=== PATIENT | female | born 1995 | race Caucasian/White ===

== ENCOUNTER 2018-11-04 07:50 | Emergency (ER) | payer MEDICAID, OTHER ==
[2018-11-04 08:17] VITALS: BP 123/64
--- NOTE | 2018-11-04 08:57 | UC ---
Hip/Pelvis Pain - HPI Summary HPI Summary: 23 year old female s/p delivery 5 months ago with pelvic pain, right sided, right hip pain after delivery, was seen at post- check 6 weeks and rec'd to have US< patient did not complete as pain was feeling better. Presents now - states pain return over past 1 week. No numbness, weakness, no decrease in strength. feels like contant "pulling" sensation in her groin and notes if sits longer than 15 minutes with legs greater than 90 degrees hip "locks up", can be "unlocked" with movement, but achy afterwards. no vaginal prolapse, no incontenece bowel/ bladder. + sex active, no protection- having period now x 1 week. - History Of Current Complaint Chief Complaint: UCLowerExtremity Stated Complaint: RIGHT HIP PAIN Time Seen by Provider: 11/04/18 08:34 Hx Obtained From: Patient Hx Last Menstrual Period: 11/01/18 ?: No - on menses currently Onset/Duration: Sudden Onset, Lasting Weeks, Still Present Pain Intensity: 7 Pain Scale Used: 0-10 Numeric Location: Discrete At: - right hip/ groin Character Of Pain: Dull, Aching Aggravating Factor(s): Movement Alleviating Factor(s): Position Associated Signs And Symptoms: Positive: Negative - Allergies/Home Medications Allergies/Adverse Reactions: Allergies Allergy/AdvReac Type Severity Reaction Status Date / Time bacitracin Allergy Rash Verified 11/04/18 08:10 Home Medications: Home Medications Ibuprofen TAB* [Advil TAB*] 600 mg PO Q6H PRN 11/04/18 [History Confirmed ] PMH/Surg Hx/FS Hx/Imm Hx Previously Healthy: Yes - Surgical History Surgical History: Yes Surgery Procedure, Year, and Place: - Social History Alcohol Use: None Substance Use Type: None Smoking Status (MU): Never Smoked Tobacco Review of Systems All Other Systems Reviewed And Are Negative: Yes Musculoskeletal: Positive: Arthralgia, Myalgia. Negative: Decreased ROM Neurological: Negative: Weakness, Paresthesia Is Patient Immunocompromised?: No Physical Exam Triage Information Reviewed: Yes Appearance: Well-Appearing, No Pain Distress, Well-Nourished Vital Signs: Initial Vital Signs Temp 97.9 F 11/04/18 08:11 Pulse 66 11/04/18 08:11 Resp 15 02/10/19 08:11 BP 123/64 11/04/18 08:11 Pulse Ox 99 11/04/18 08:11 Vital Signs Reviewed: Yes Eyes: Positive: Conjunctiva Clear Abdomen Description: Positive: No Organomegaly, Soft, Other: - TTP over suprepubic area, LLQ mild with deep palpation. Negative: Hepatomegaly, Splenomegaly Musculoskeletal: Positive: ROM Intact - RIght hip- FF greater than 110 without pain, mild tenderness with internal/ external rotation at endpoints, add to 30 degrees with mild pain at endpoint, abd to 50 degrees with mild tenderness at endpoint., No Edema Neurological: Positive: Alert, Muscle Tone Normal Psychological Exam: Normal Skin Exam: Normal Hip Injury Course/Dx - Course Course Of Treatment: x-ray: negative, follow up with claims service adjustor, complete imaging as prescribed, PT script given - Differential Dx/Diagnosis Differential Diagnosis/HQI/PQRI: Sprain, Strain, Tenosynovitis Provider Diagnosis: Strain of hip Discharge - Sign-Out/Discharge Documenting (check all that apply): Patient Departure All imaging exams completed and their final reports reviewed: Yes - Discharge Plan Condition: Good Disposition: HOME Meds/Orders/Equipment: Physical Therapy Location: None Selected Patient Education Materials: Hip Pain (ED) Referrals: No Primary Care Phys,NOPCP [Primary Care Provider] - Additional Instructions: - Gentle hip stretches - Follow up with EN[employer]EL INSTALLATION TECHNICIAN. Schedule US as prescribed from before - Physical therapy - Tylenol as needed for pain - Return with weakness, loss of bowel/ bladder function, numbness - Billing Disposition and Condition Condition: GOOD Disposition: Home
== END 2018-11-04 10:17 | disposition home or self-care (01) ==
LOC: UCCORT 07:50
DX: S76.011A Strain of muscle, fascia and tendon of right hip, initial encounter (principal); Z88.1 Allergy status to other antibiotic agents; X58.XXXA Exposure to other specified factors, initial encounter; Y92.9 Unspecified place or not applicable
CPT/HCPCS: 84702; 99201; G0463